=== PATIENT | female | born 1935 | race Caucasian/White ===

== ENCOUNTER → 2017-11-27 | Outpatient (CLI) | payer OTHER ==
[~2017-11-27] MED LIST: KEFLEX500 MG PO; SLEEPING PILL; XANAX 0.5 MG0.5 M1; ZOFRAN ODT4 MG PO
== END ==
LOC: M.WC 09:25
DX: I70.212 Atherosclerosis of native arteries of extremities with intermittent claudication, left leg (principal); L97.522 Non-pressure chronic ulcer of other part of left foot with fat layer exposed; F17.210 Nicotine dependence, cigarettes, uncomplicated; Z90.710 Acquired absence of both cervix and uterus

== ENCOUNTER → 2017-12-04 | Outpatient (CLI) | payer OTHER | LOC: M.WC 01:22 | DX: I70.212 Atherosclerosis of native arteries of extremities with intermittent claudication, left leg (principal); L97.522 Non-pressure chronic ulcer of other part of left foot with fat layer exposed; F17.210 Nicotine dependence, cigarettes, uncomplicated; Z90.710 Acquired absence of both cervix and uterus ==

== ENCOUNTER → 2017-12-07 | Outpatient (CLI) | payer OTHER | LOC: M.ULTRA 11-29 13:00 | DX: I73.9 Peripheral vascular disease, unspecified (principal); L97.428 Non-pressure chronic ulcer of left heel and midfoot with other specified severity ==

== ENCOUNTER → 2017-12-11 | Outpatient (CLI) | payer OTHER | LOC: M.WC 00:58 | DX: I70.245 Atherosclerosis of native arteries of left leg with ulceration of other part of foot (principal); L97.522 Non-pressure chronic ulcer of other part of left foot with fat layer exposed; F17.210 Nicotine dependence, cigarettes, uncomplicated; Z90.710 Acquired absence of both cervix and uterus ==

== ENCOUNTER → 2017-12-18 | Outpatient (CLI) | payer OTHER | LOC: M.WC 10:00 | DX: I70.212 Atherosclerosis of native arteries of extremities with intermittent claudication, left leg (principal); L97.522 Non-pressure chronic ulcer of other part of left foot with fat layer exposed; F17.210 Nicotine dependence, cigarettes, uncomplicated; Z90.710 Acquired absence of both cervix and uterus ==

== ENCOUNTER → 2018-01-08 | Outpatient (CLI) | payer OTHER | LOC: M.WC 01:56 | DX: L97.522 Non-pressure chronic ulcer of other part of left foot with fat layer exposed (principal); I70.212 Atherosclerosis of native arteries of extremities with intermittent claudication, left leg; F17.210 Nicotine dependence, cigarettes, uncomplicated; Z90.710 Acquired absence of both cervix and uterus ==

== ENCOUNTER → 2018-07-13 | Outpatient (CLI) | payer OTHER ==
[2018-07-13 14:51] LABS: URINE BILIRUBIN NEGATIVE (Negative); URINE BLOOD NEGATIVE (Negative); URINE CLARITY CLEAR; URINE COLOR YELLOW; URINE GLUCOSE-RANDOM NEGATIVE (Negative); URINE KETONES NEGATIVE (Negative); URINE LEUKOCYTES 1+ (Negative); URINE NITRITE POSITIVE (Negative); URINE PROTEIN NEGATIVE (Negative); URINE SPECIFIC GRAVITY <= 1.005 (1.005-1.030); URINE UROBILINOGEN 0.2 E.U./dl (0.2-1.0)
[2018-07-13 14:54] LABS: CREATININE 1.1 mg/dL (0.6-1.3)
[2018-07-13 15:09] LABS: SQUAMOUS 4-10 Moderate /LPF (0-3); URINE WBC 0-5 Rare /HPF (0-5)
[2018-07-13 15:10] LABS: BACTERIA >30 Many /HPF (None Seen); CASTS None Seen /LPF (None Seen); CRYSTALS None Seen /LPF (None Seen); URINE RBC None Seen /HPF (0-2)
[2018-07-13 18:10] LABS: URINE POTASSIUM-RANDOM 21.7 mmol/L
== END ==
LOC: M.LAB 13:54
PROVIDERS: Internal Medicine Nephrology
DX: N17.9 Acute kidney failure, unspecified (principal); M47.815 Spondylosis without myelopathy or radiculopathy, thoracolumbar region; M41.85 Other forms of scoliosis, thoracolumbar region; R91.8 Other nonspecific abnormal finding of lung field; Z87.891 Personal history of nicotine dependence

== ENCOUNTER 2018-10-15 18:51 | Emergency (ER) | payer OTHER ==
[~2018-10-15] VITALS: Ht 154.9 cm; Wt 46.3 kg
[2018-10-15] MEDS ORDERED: KEFLEX500 M1 PO (20:19)
[2018-10-15] MEDS ORDERED: NORCO 5-325 TA1 EAC1 PO (20:20)
[2018-10-15] MEDS ORDERED: PERCOCET PO (20:28)
[2018-10-15 20:45] VITALS: BP 117/79
== END 2018-10-15 20:48 | disposition home or self-care (01) ==
LOC: M.ERS 18:51
DX: S61.412A Laceration without foreign body of left hand, initial encounter (principal); F17.210 Nicotine dependence, cigarettes, uncomplicated; Z90.710 Acquired absence of both cervix and uterus; Z88.6 Allergy status to analgesic agent; Z88.2 Allergy status to sulfonamides; Z88.1 Allergy status to other antibiotic agents; Z88.8 Allergy status to other drugs, medicaments and biological substances; W26.8XXA Contact with other sharp object(s), not elsewhere classified, initial encounter; Y93.89 Activity, other specified; Y92.89 Other specified places as the place of occurrence of the external cause; Y99.8 Other external cause status

== ENCOUNTER → 2018-10-18 | Outpatient (CLI) | payer OTHER ==
[~2018-10-18] MED LIST changes: +KEFLEX500 M1 PO; +NORCO 5-325 TA1 EAC1 PO; +PERCOCET PO
== END ==
LOC: M.WC 09:51
DX: S61.412A Laceration without foreign body of left hand, initial encounter (principal); L84 Corns and callosities; M15.0 Primary generalized (osteo)arthritis; F17.290 Nicotine dependence, other tobacco product, uncomplicated; F41.1 Generalized anxiety disorder; Z90.710 Acquired absence of both cervix and uterus; Z85.118 Personal history of other malignant neoplasm of bronchus and lung; W20.8XXA Other cause of strike by thrown, projected or falling object, initial encounter; Y93.89 Activity, other specified; Y92.89 Other specified places as the place of occurrence of the external cause; Y99.8 Other external cause status

== ENCOUNTER → 2018-10-25 | Outpatient (CLI) | payer OTHER | LOC: M.WC 09:30 | DX: S61.412A Laceration without foreign body of left hand, initial encounter (principal); L84 Corns and callosities; G47.09 Other insomnia; M15.0 Primary generalized (osteo)arthritis; F17.290 Nicotine dependence, other tobacco product, uncomplicated; F41.9 Anxiety disorder, unspecified; Z90.710 Acquired absence of both cervix and uterus; Z85.118 Personal history of other malignant neoplasm of bronchus and lung; W20.8XXA Other cause of strike by thrown, projected or falling object, initial encounter; Y93.E9 Activity, other interior property and clothing maintenance; Y92.098 Other place in other non-institutional residence as the place of occurrence of the external cause; Y99.8 Other external cause status ==

== ENCOUNTER → 2018-11-01 | Outpatient (CLI) | payer OTHER | LOC: M.WC 01:45 | DX: S61.412D Laceration without foreign body of left hand, subsequent encounter (principal); L84 Corns and callosities; G47.09 Other insomnia; M15.0 Primary generalized (osteo)arthritis; F17.290 Nicotine dependence, other tobacco product, uncomplicated; F41.9 Anxiety disorder, unspecified; Z85.118 Personal history of other malignant neoplasm of bronchus and lung; Z90.710 Acquired absence of both cervix and uterus; W20.8XXD Other cause of strike by thrown, projected or falling object, subsequent encounter ==

== ENCOUNTER → 2018-11-29 | Outpatient (CLI) | payer OTHER | LOC: M.WC 11-27 10:30 | DX: S61.412D Laceration without foreign body of left hand, subsequent encounter (principal); L84 Corns and callosities; G47.09 Other insomnia; M15.0 Primary generalized (osteo)arthritis; F41.9 Anxiety disorder, unspecified; F17.290 Nicotine dependence, other tobacco product, uncomplicated; Z90.710 Acquired absence of both cervix and uterus; Z85.118 Personal history of other malignant neoplasm of bronchus and lung; W19.XXXD Unspecified fall, subsequent encounter ==

== ENCOUNTER → 2019-03-08 | Outpatient (CLI) | payer OTHER | LOC: M.RAD 11:53 | DX: M47.816 Spondylosis without myelopathy or radiculopathy, lumbar region (principal); M41.86 Other forms of scoliosis, lumbar region; M48.061 Spinal stenosis, lumbar region without neurogenic claudication; M41.84 Other forms of scoliosis, thoracic region ==